=== PATIENT | male | born 1995 | race Caucasian/White ===

== ENCOUNTER 2016-12-17 23:54 | Emergency (ER) | payer MEDICAID ==
[~2016-12-17] VITALS: Ht 172.7 cm; Wt 129.7 kg
[~2016-12-17 23:54] MED LIST: CLIN1CAP4 PO; NOR5T
[2016-12-18] MEDS ORDERED: KETOROLAC TROMETH 60MG/2ML VIAL IM ONE (01:00)
[2016-12-18 02:57] VITALS: BP 139/84
== END 2016-12-18 03:15 | disposition short-term general hospital (02) ==
LOC: EDBD 23:54 → ER 12-18
DX: S92.912A Unspecified fracture of left toe(s), initial encounter for closed fracture (principal); S19.9XXA Unspecified injury of neck, initial encounter; M25.561 Pain in right knee; M25.522 Pain in left elbow; F17.200 Nicotine dependence, unspecified, uncomplicated; F12.10 Cannabis abuse, uncomplicated; R51 Headache; Z88.1 Allergy status to other antibiotic agents; V49.9XXA Car occupant (driver) (passenger) injured in unspecified traffic accident, initial encounter; Y93.89 Activity, other specified; Y99.8 Other external cause status; Y92.89 Other specified places as the place of occurrence of the external cause
CPT/HCPCS: 70450; 70486; 71010; 71250; 72125; 73080; 73560; 73630; 74176; 96372; 99285; J1885

== ENCOUNTER 2025-04-28 21:12 | Inpatient (IN) | payer MEDICAID ==
[~2025-04-28] VITALS: Ht 172.7 cm; Wt 142.4 kg
[~2025-04-28 21:12] MED LIST changes: -CLIN1CAP4 PO; +CLIN1CAP70 PO; +HYDR-4833; -NOR5T
--- NOTE | 2025-04-28 22:28 | ED.PDOC ---
General HPI Comments 30 year old male brought in by family complaining of right lower quadrant abdominal pain. Patient states for the past 3 hours, he has been having constant right lower quadrant abdominal pain, 9/10 intensity, radiating to his right flank and low back, associated with nausea and vomiting and gross hematuria. Denies any dysuria or fever. Chief Complaint: Abdominal Pain Time Seen by MD: 22:28 Primary Care Provider: VIANCA Hamlin notes: Nurses Notes Allergies: Coded Allergies: Amoxicillin (Verified Allergy, Unknown, 04/28/25) Home Meds Reported Medications Hydrocodone-Acetaminophen ([place] 5/325MG) 1 Tab Tb 06/21/10 Clindamycin Hcl (Clindamycin Hcl) 300 Mg Cap, 600 MG PO TID 06/20/10 Information Source: Patient Mode of Arrival: Ambulatory Severity: Moderate Inability to void: Mild Timing: Hours (3) Duration: Since onset Has not urinated for: Minutes Onset: Spontaneous Symptoms: Hematuria History of: UTI Location: (R) Flank, Other (Right lower quadrant) associated signs and symptoms: Abdominal Pain, Nausea, Vomiting, Flank Pain, He maturia Past Medical History PAST MEDICAL HISTORY: UTI'S Surgical History: Denies all surgeries Family History Family History: Reviewed,noncontributory to illness Social History Smoker: Less Than 1 Pack/Day Alcohol: Denies ETOH Use Drugs: Marijuana Lives In: Home Constitutional: denies: chills, diaphoresis, fatigue, fever, malaise, sweats, weakness, others EENTM: denies: blurred vision, double vision, ear bleeding, ear discharge, ear drainage, ear pain, ear ringing, eye pain, eye redness, hearing loss, mouth pain, mouth swelling, nasal discharge, nose bleeding, nose congestion, nose pain, photophobia, tearing, throat pain, throat swelling, voice changes, others Respiratory: denies: cough, hemoptysis, orthopnea, SOB at rest, shortness of breath, SOB with excertion, stridor, wheezing, others Cardiovascular: denies: chest pain, dizzy spells, diaphoresis, Dyspnea on exertion, edema, irregular heart beat, left arm pain, lightheadedness, palpitations, PND, syncope, others Gastrointestinal: reports: abdominal pain (RLQ), nausea, vomiting; denies: abdomen distended, blood streaked bowels, constipated, diarrhea, dysphagia, difficulty swallowing, hematemesis, melena, poor appetite, poor fluid intake, rectal bleeding, rectal pain, others Genitourinary: reports: flank pain (right), hematuria; denies: burning, dysuria, frequency, incontinence, penile discharge, penile sore, pain, testicle pain, testicle swelling, urgency, others Neurological: denies: dizziness, fainting, headache, left sided numbness, left sided weakness, numbness, paresthesia, pre-existing deficit, right sided numbne ss, right sided weakness, seizure, speech problems, tingling, tremors, weakness, others Musculoskeletal: denies: back pain, gout, joint pain, joint swelling, muscle pain, muscle stiffness, neck pain, others Integumetry: denies: bruises, change in color, change in hair/nails, dryness, laceration, lesions, lumps, rash, wounds, others Allergic/Immunocompromised: denies: Difficulty Healing, Frequent Infections, Hives, Itching, others Hematologic/Lymphatic: denies: anemia, blood clots, easy bleeding, easy bruising, swollen glands, others Endocrine: denies: excessive hunger, excessive sweating, excessive thirst, excessive urination, flushing, intolerance to cold, intolerance to heat, unexplained weight gain, unexplained weight loss, others Psychiatric: denies: anxiety, bipolar disorder, depression, hopeless, panic disorder, schizophrenia, sleepless, suicidal, others Physical Exam General Appearance: Moderate Distress, Obese HEENT: Other (Pupils and face symmetric. Moist mucous membranes.) Neck: Full Range of Motion, Normal Inspection Respiratory: Lungs Clear, No Accessory Muscle Use, No Respiratory Distress, Normal Breath Sounds Cardiovascular: No Edema, No JVD, Regular Rate/Rhythm Breast Exam: Deferred Gastrointestinal: RLQ, Soft, Tenderness (Right lower flank and right lower quadrant tenderness to palpation) Genitalia: Deferred Pelvic: Deferred Rectal: Deferred Extremities: Normal inspection, Normal range of motion, Non-tender, No pedal edema Neurologic: Alert (Oriented x4), Normal Affect, Normal Mood, Other (Ambulatory) Cerebellar Function: NOT DONE Reflexes: NOT DONE Skin: Dry, Normal Color, Warm Lymphatic: NOT DONE Was a procedure done? Was a procedure done?: No Differential Diagnosis Kidney stone (Female): Appendicitis, Bowel obstruction, N/A Kidney stone (Male): Pyelonephritis, Renal failure, Strain, Urinary obs truction, Urolithiasis, Urinary tract infection Urinary Problem (Male): Urethritis, Urolithiasis, UTI X-Ray, Labs, Meds, VS Vital Signs Date Time Temp Pulse Resp B/P (MAP) Pulse Ox O2 Delivery O2 Flow Rate FiO2 04/29/25 00:55 97.7 62 16 151/82 (105) 93 97.7 04/29/25 00:04 73 15 151/82 04/28/25 23:36 60 16 153/86 04/28/25 23:22 97.0 60 16 153/86 (108) 93 97.0 04/28/25 23:22 60 16 93 Room Air* 0 21 04/28/25 22:00 97.5 58 18 162/69 (100) 95 97.5 Lab Test 04/28/25 22:21 04/28/25 22:00 Range/Units White Blood Count 13.2 H 4.4-10.8 10^3/uL Red Blood Count 5.16 4.5-5.90 10^6/uL Hemoglobin 15.6 13.5-17.5 g/dL Hematocrit 46.0 41.0-53.0 % Mean Corpuscular Volume 89.3 80.0-100.0 fL Mean Corpuscular Hemoglobin 30.3 28.0-32.0 pg Mean Corpuscular Hemoglobin Concent 33.9 32.0-36.0 g/dL Red Cell Distribution Width 12.4 11.8-14.3 % Platelet Count 312 140-450 10^3/uL Mean Platelet Volume 8.0 6.9-10.8 fL Neutrophils (%) (Auto) 78.0 37.0-80.0 % Lymphocytes (%) (Auto) 15.2 10.0-50.0 % Monocytes (%) (Auto) 6.4 0.0-12.0 % Eosinophils (%) (Auto) 0.1 0.0-7.0 % Basophils (%) (Auto) 0.3 0.0-2.0 % Neutrophils # (Auto) 10.3 H 1.6-8.6 10 ^3/uL Lymphocytes # (Auto) 2.0 0.4-5.4 10 ^3/uL Monocytes # (Auto) 0.8 0-1.3 10 ^3/uL Eosinophils # (Auto) 0 0-0.8 10 ^3/uL Basophils # (Auto) 0 0-0.2 10 ^3/uL Nucleated Red Blood Cells 0.0 % Sodium Level 142 136-145 mmol/L Potassium Level 4.1 3.5-5.1 mmol/L Chloride Level 104 98-107 mmol/L Carbon Dioxide Level 30 20-31 mmol/L Anion Gap 8 5-15 Blood Urea Nitrogen 20 9-23 mg/dL Creatinine 1.15 0.700-1.30 mg/dL Glomerular Filtration Rate Calc 87 >90 mL/min BUN/Creatinine Ratio 17.4 10.0-20.0 Serum Glucose 186 H 74-106 mg/dL Calcium Level 9.9 8.7-10.4 mg/dL Total Bilirubin 0.9 0.2-1.0 mg/dL Aspartate Amino Transferase (AST) 24 13-40 U/L Alanine Aminotransferase (ALT) 25 7-40 U/L Alkaline Phosphatase 60 46-116 U/L Total Protein 7.9 5.7-8.2 g/dL Albumin 5.0 H 3.2-4.8 g/dL Urine Color Brown H Yellow Urine Clarity Ex.turbid Clear Urine pH 5.5 5.0-9.0 Urine Specific [place] 1.038 H 1.001-1.035 Urine Protein 1+ H Negative Urine Ketones 1+ H Negative Urine Blood 3+ H Negative /uL Urine Nitrite Negative Negative Urine Bilirubin Negative Negative Urine Urobilinogen Normal Negative mg/dL Urine Leukocyte Esterase Negative Negative /uL Urine RBC 6490 0 - 3 /hpf Urine Microscopic WBC 110 H 0-3 /HPF Urine Squamous Epithelial Cells None seen <5 /hpf Urine Bacteria None seen None Seen /hpf Urine Mucus Few None Seen Urine Glucose Normal Normal mg/dL Current Medications Medications (Trade) Dose Ordered Sig/Sheila Route Start Time Stop Time Status Last Admin Sodium Chloride 1,000 ml @ 1,000 mls/hr Q1H ONCE IV 04/28/25 22:15 04/28/25 23:14 DC 04/28/25 23:37 Ondansetron HCl (Zofran) 4 mg ONCE ONCE IV 04/28/25 22:15 04/28/25 22:16 DC 04/28/25 23:34 Morphine Sulfate 6 mg ONCE ONCE IV 04/28/25 22:15 04/28/25 22:16 DC 04/28/25 23:36 Magnesium Sulfate/ Dextrose 100 ml @ 100 mls/hr Q1H IV 04/28/25 22:15 04/29/25 00:14 DC 04/29/25 00:02 Ketorolac Tromethamine (Toradol Injection) 30 mg ONCE ONCE IV 04/29/25 01:00 04/29/25 01:04 DC 04/29/25 01:07 PROCEDURE(s): ABPL - CT AB PEL WO CON-NO ORAL OR IV REASON: RLQ pain rad to R flank, hematuria ORDER NUMBER(s): [id number], ACCESSION NUMBER(s): [id number] CLINICAL HISTORY: RLQ pain rad to R flank, hematuria TECHNIQUE: CT of the abdomen and pelvis was performed without intravenous contrast. This exam was performed according to our departmental dose optimization program. Up-to-date CT equipment and radiation dose reduction techniques are utilized as appropriate. CTDI: 27.87+ 0.14 DLP: 1657.94 WID: COMPARISON: None FINDINGS: Lower Thorax: Cluster of nodular opacities in the right middle lobe on series 3, image 11. Liver and Biliary system: Mild hepatomegaly measuring 21 cm craniocaudal. Otherwise unremarkable. Spleen: Unremarkable. Adrenal Glands and Kidneys: Normal adrenal glands. There is an obstructing 3 mm calculus in the proximal right ureter causing mild right hydronephrosis and mild right periureteral and perinephric soft tissue stranding. Additional tiny nonobstructing left renal calculi. Pancreas and Retroperitoneum: Unremarkable. Aorta and Major Vessels: Unremarkable. Bowel, Mesentery and Peritoneal space: Normal caliber small and large bowel. Normal appendix. No free air or fluid collection. Pelvis: Dystrophic calcification in the central prostate gland. Decompressed urinary bladder. No pelvic lymphadenopathy. Abdominal wall and Osseous Structures: Small fat containing bilateral inguinal and umbilical hernias. Minor lower thoracic and lumbar spondylosis. No destructive osseous lesion. IMPRESSION: Obstructing 3 mm calculus in the proximal right ureter causing mild right hydronephrosis. Cluster of nodular opacities in the right middle lobe which could reflect atypical infection. Additional tiny nonobstructing left renal calculi. Mild hepatomegaly. X-Ray, Labs, Meds, VS Comment 30-year-old male with no significant past medical history complaining of right lower quadrant pain radiating to the right flank and right lower back, associated with hematuria Vitals remarkable for heart rate 58, BP 162/59 Exam remarkable for right lower quadrant and right lower flank tenderness to palpation Rhythm strip independently interpreted by me: Sinus rhythm, rate 60, no ectopy. CT abdomen and pelvis IMPRESSION: Obstructing 3 mm calculus in the proximal right ureter causing mild right hydronephrosis. Cluster of nodular opacities in the right middle lobe which could reflect atypical infection. Additional tiny nonobstructing left renal calculi. Mild hepatomegaly. CBC remarkable for WBC 13.2, basic metabolic panel remarkable for glucose 186, UA positive for blood, protein, ketones, WBCs, RBCs Patient treated with the following in the ED: 1 L 0.9 normal saline IV bolus, morphine 6 mg IV, Zofran 4 mg IV, magnesium rider 2 g IV, Toradol 30 mg IV with only partial improvement of his pain Plan is to admit the patient for pain control and Urology evaluation. Time of 1ST Reevaluation: 22:25 Reevaluation 1ST: Unchanged Patient Education/Counseling: Diagnosis, Treatment Family Education/Counseling: Diagnosis, Treatment SEPSIS Sepsis Screen Physician Orders Ct Ab Pel Wo Con-No Oral Or Iv (04/28/25 22:12) Vital Signs Date Time Temp Pulse Resp B/P (MAP) Pulse Ox O2 Delivery O2 Flow Rate FiO2 04/29/25 00:55 97.7 62 16 151/82 (105) 93 97.7 04/29/25 00:04 73 15 151/82 04/28/25 23:36 60 16 153/86 04/28/25 23:22 97.0 60 16 153/86 (108) 93 97.0 04/28/25 23:22 60 16 93 Room Air* 0 21 04/28/25 22:00 97.5 58 18 162/69 (100) 95 97.5 Laboratory Tests Test 04/28/25 22:21 White Blood Count 13.2 10^3/uL (4.4-10.8) H Medications Medications Dose Ordered Sig/Sheila Route Start Time Stop Time Status Last Admin Dose Admin Ketorolac Tromethamine 30 mg ONCE ONCE IV 04/29/25 01:00 04/29/25 01:04 DC 04/29/25 01:07 Magnesium Sulfate/ Dextrose 100 ml @ 100 mls/hr Q1H IV 04/28/25 22:15 04/29/25 00:14 DC 04/29/25 00:02 Morphine Sulfate 6 mg ONCE ONCE IV 04/28/25 22:15 04/28/25 22:16 DC 04/28/25 23:36 Ondansetron HCl 4 mg ONCE ONCE IV 04/28/25 22:15 04/28/25 22:16 DC 04/28/25 23:34 Sodium Chloride 1,000 ml @ 1,000 mls/hr Q1H ONCE IV 04/28/25 22:15 04/28/25 23:14 DC 04/28/25 23:37 Departure 1 Departure Time of Disposition: 01:00 Impression: Primary Impression: Hydronephrosis concurrent with and due to calculi of kidney and ureter Disposition: ADMITTED INPATIENT Admit to: Med Surg Condition: Guarded Critical Care Note Critical Care Time?: No Stability Stability form required: No Heart Score Heart Score: Heart Score Response (Comments) Value History N/A 0 EKG N/A 0 Age N/A 0 Risk Factors N/A 0 Troponin N/A 0 Total 0 I personally scribed for SHELBY OLIVAS MD ([facility]) on 04/28/25 at 22:28. Electronically submitted by Bhaart Stone ([facility]). I personally scribed for SHELBY OLIVAS MD ([email or web address]) on 04/29/25 at 00:40. Electronically submitted by Bharat Stone ([facility]). SHELBY OLIVAS MD Apr 28, 2025 22:28
[2025-04-28 22:37] LABS: Hematocrit 46.0 % (41.0-53.0); Hemoglobin 15.6 g/dL (13.5-17.5); Mean Corpuscular Hemoglobin 30.3 pg (28.0-32.0); Mean Corpuscular Volume 89.3 fL (80.0-100.0); Nucleated Red Blood Cells % 0.0 %
[2025-04-28 22:55] LABS: Alanine Aminotransferase 25 U/L (7-40); Alkaline Phosphatase 60 U/L (46-116); Anion Gap 8 (5-15); BUN/Creatinine Ratio 17.4 (10.0-20.0); Blood Urea Nitrogen 20 mg/dL (9-23); Calcium 9.9 mg/dL (8.7-10.4); Carbon Dioxide 30 mmol/L (20-31); Chloride 104 mmol/L (98-107); Potassium 4.1 mmol/L (3.5-5.1); Sodium 142 mmol/L (136-145); Total Protein 7.9 g/dL (5.7-8.2)
[2025-04-28 22:56] LABS: Bilirubin, Total 0.9 mg/dL (0.2-1.0)
[2025-04-28 23:03] LABS: Albumin 5.0 g/dL (3.2-4.8); Glucose 186 mg/dL (74-106)
[2025-04-28 23:06] LABS: Urine Protein, UAD 1+ (Negative)
[2025-04-28 23:22] VITALS: PULSE 60; RESP 16; O2SAT 93
[2025-04-28] MEDS: ONDANSETRON HCL 4 MG/2 ML VIAL IV ONE (23:34)
[2025-04-28] MEDS: MORPHINE SULFATE 4 MG/ML SYR/VIAL IV ONE (23:36)
[2025-04-28] MEDS: MAGNESIUM SULFATE 1GM/100ML 100 ML IV SCH (23:36)
[2025-04-28] MEDS: SODIUM CHLORIDE 0.9% 1,000 ML IV ONE (23:37)
[2025-04-29] VITALS (9 sets, daily range): BP systolic 108–129; BP diastolic 66–82; PULSE 72–96; RESP 16–20; TEMP 97.5–98.7; O2SAT 92–100
--- NOTE | 2025-04-29 00:08 | DVH ---
CLINICAL HISTORY: RLQ pain rad to R flank, hematuria TECHNIQUE: CT of the abdomen and pelvis was performed without intravenous contrast. This exam was per formed according to our departmental dose optimization program. Up-to-date CT equipment and radiation dose reduction techniques are utilized as appropriate. CTDI: 27.87+ 0.14 DLP: 1657.94 WID: COMPARISON: None FINDINGS: Lower Thorax: Cluster of nodular opacities in the right middle lobe on series 3, image 11. Liver and Biliary system: Mild hepatomegaly measuring 21 cm craniocaudal. Otherwise unremarkable. Spleen: Unremarkable. Adrenal Glands and Kidneys: Normal adrenal glands. There is an obstructing 3 mm calculus in the proxi mal right ureter causing mild right hydronephrosis and mild right periureteral and perinephric soft t issue stranding. Additional tiny nonobstructing left renal calculi. Pancreas and Retroperitoneum: Unremarkable. Aorta and Major Vessels: Unremarkable. Bowel, Mesentery and Peritoneal space: Normal caliber small and large bowel. Normal appendix. No free air or fluid collection. Pelvis: Dystrophic calcification in the central prostate gland. Decompressed urinary bladder. No pel dandre lymphadenopathy. Abdominal wall and Osseous Structures: Small fat containing bilateral inguinal and umbilical hernias. Minor lower thoracic and lumbar spondylosis. No destructive osseous lesion. IMPRESSION: Obstructing 3 mm calculus in the proximal right ureter causing mild right hydronephrosis. Cluster of nodular opacities in the right middle lobe which could reflect atypical infection. Additional tiny nonobstructing left renal calculi. Mild hepatomegaly.
[2025-04-29] MEDS: KETOROLAC TROMETH 30 MG/ML 1ML VIAL IV ONE (01:07)
[2025-04-29] MEDS ORDERED: cefTRIAXone 1GM/50ML D5W 50 ML IV ONE (01:45)
[2025-04-29] MEDS ORDERED: ACETAMINOPHEN 325 MG TAB PO PRN (01:45)
[2025-04-29] MEDS ORDERED: SODIUM CHLORIDE 0.9% 1,000 ML IV SCH (01:45)
[2025-04-29] MEDS ORDERED: ONDANSETRON HCL 4 MG/2 ML VIAL IV PRN (01:45)
[2025-04-29] MEDS ORDERED: HYDROcodone-ACET 5/325MG TAB PO PRN (01:45)
[2025-04-29] MEDS: TAMSULOSIN HYDROCHLORIDE 0.4 MG CAP PO ONE (01:56)
[2025-04-29] MEDS: SODIUM CHLORIDE 0.9% 1,000 ML IV SCH (01:57)
[2025-04-29] MEDS: cefTRIAXone 1GM/50ML D5W 50 ML IV ONE ×2 (01:57→10:38)
[2025-04-29] MEDS: MANNITOL FTV 25% 12.5 GM/50 ML 100 ML IV ONE (01:58)
--- NOTE | 2025-04-29 02:03 | DVHHP2 ---
History of Present Illness History of Present Illness Patient is 30-year-old male with past medical history of recurrent UTI came with a complaint of abdominal pain. As per patient he started having severe right lower abdominal pain, sudden onset, 9/10 sharp,, stent, no aggravating or relieving factor, radiating to the right flank started around 6 3rd p.m. last night. Patient also reported having hematuria since morning. Patient's pain was associated with nausea and vomiting of total 5 times, no blood. Patient denied any dysuria, fever, acute joint pain or swelling, urethral discharge, chest pain shortness of breaths. Initial lab workup revealed leukocytosis with WBC 13.2, RBF 186, urinalysis reviewed RBC 6490, WBC 116. UDS positive for cannabinoids. CT abdomen pelvis revealed- Obstructing 3 mm calculus in the proximal right ureter causing mild right hydronephrosis. Cluster of nodular opacities in the right middle lobe which could reflect atypical infection. Additional tiny nonobstructing left renal calculi. Mild hepatomegaly. Past Medical History none Past Surgical History none Past Social History Denies smoking/smokes marijuana, occasional alcoholic, lives with the family Review of Systems Review of Systems Allergy- amoxicillin-rash and hives Patient was seen today at the bedside. Cardiovascular- deny acute chest pain or shortness of breath or cough or palpitation Respiratory denies cough or short of breath or wheezing Gastrointestinal- denies any rectal bleeding, Musculoskeletal-denies acute joint swelling or tenderness or redness Neurological- denies acute dysarthria, dysphagia, change in vision Psychiatry- denies depression or SI or HI Skin- denies acute rash or purpura Allergies: Coded Allergies: Amoxicillin (Verified Allergy, Unknown, 04/28/25) Medications Current Medications Medications Dose Ordered Sig/Sheila Route Start Time Stop Time Status Last Admin Dose Admin Acetaminophen/ Hydrocodone Bitart 1 tab Q4HP PRN PO 04/29/25 01:45 Ondansetron HCl 4 mg Q4HP PRN IV 04/29/25 01:45 Acetaminophen 650 mg Q6HP PRN PO 04/29/25 01:45 Tamsulosin HCl 0.4 mg QPM PO 04/29/25 18:00 Ceftriaxone Sodium 50 ml @ 100 mls/hr DAILY@09 IV 04/30/25 09:00 Sodium Chloride 1,000 ml @ 150 mls/hr Q6H40M IV 04/29/25 01:45 Exam Vital Signs Vital Signs Date Time Temp Pulse Resp B/P (MAP) Pulse Ox O2 Delivery O2 Flow Rate FiO2 04/29/25 00:55 97.7 62 16 151/82 (105) 93 97.7 04/28/25 23:22 Room Air* 0 21 Exam General examination- obese, awake, alert, oriented HEENT- [place], no acute nasal discharge Cardiovascular- S1-S2 audible, rate and rhythm regular, no murmur Respiratory- CTAB, no wheeze or rhonchi Gastrointestinal-right lower abdominal mild tenderness+, bowel sound+. Nondistended Musculoskeletal-no acute joint swelling or tenderness or redness Renal system- right renal angle tenderness+ mild Lower extremity- no leg edema Neurological- cranial nerves intact, no acute dysarthria or dysphagia Psychiatry- denies depression or SI or HI Skin- no acute rash or purpura Labs/Xrays Labs Test 04/28/25 22:21 04/28/25 22:00 Range/Units White Blood Count 13.2 H 4.4-10.8 10^3/uL Red Blood Count 5.16 4.5-5.90 10^6/uL Hemoglobin 15.6 13.5-17.5 g/dL Hematocrit 46.0 41.0-53.0 % Mean Corpuscular Volume 89.3 80.0-100.0 fL Mean Corpuscular Hemoglobin 30.3 28.0-32.0 pg Mean Corpuscular Hemoglobin Concent 33.9 32.0-36.0 g/dL Red Cell Distribution Width 12.4 11.8-14.3 % Platelet Count 312 140-450 10^3/uL Mean Platelet Volume 8.0 6.9-10.8 fL Neutrophils (%) (Auto) 78.0 37.0-80.0 % Lymphocytes (%) (Auto) 15.2 10.0-50.0 % Monocytes (%) (Auto) 6.4 0.0-12.0 % Eosinophils (%) (Auto) 0.1 0.0-7.0 % Basophils (%) (Auto) 0.3 0.0-2.0 % Neutrophils # (Auto) 10.3 H 1.6-8.6 10 ^3/uL Lymphocytes # (Auto) 2.0 0.4-5.4 10 ^3/uL Monocytes # (Auto) 0.8 0-1.3 10 ^3/uL Eosinophils # (Auto) 0 0-0.8 10 ^3/uL Basophils # (Auto) 0 0-0.2 10 ^3/uL Nucleated Red Blood Cells 0.0 % Sodium Level 142 136-145 mmol/L Potassium Level 4.1 3.5-5.1 mmol/L Chloride Level 104 98-107 mmol/L Carbon Dioxide Level 30 20-31 mmol/L Anion Gap 8 5-15 Blood Urea Nitrogen 20 9-23 mg/dL Creatinine 1.15 0.700-1.30 mg/dL Glomerular Filtration Rate Calc 87 >90 mL/min BUN/Creatinine Ratio 17.4 10.0-20.0 Serum Glucose 186 H 74-106 mg/dL Calcium Level 9.9 8.7-10.4 mg/dL Total Bilirubin 0.9 0.2-1.0 mg/dL Aspartate Amino Transferase (AST) 24 13-40 U/L Alanine Aminotransferase (ALT) 25 7-40 U/L Alkaline Phosphatase 60 46-116 U/L Total Protein 7.9 5.7-8.2 g/dL Albumin 5.0 H 3.2-4.8 g/dL Urine Color Brown H Yellow Urine Clarity Ex.turbid Clear Urine pH 5.5 5.0-9.0 Urine Specific [place] 1.038 H 1.001-1.035 Urine Protein 1+ H Negative Urine Ketones 1+ H Negative Urine Blood 3+ H Negative /uL Urine Nitrite Negative Negative Urine Bilirubin Negative Negative Urine Urobilinogen Normal Negative mg/dL Urine Leukocyte Esterase Negative Negative /uL Urine RBC 6490 0 - 3 /hpf Urine Microscopic WBC 110 H 0-3 /HPF Urine Squamous Epithelial Cells None seen <5 /hpf Urine Bacteria None seen None Seen /hpf Urine Mucus Few None Seen Urine Glucose Normal Normal mg/dL Assessment/Plan Assessment/Plan Assessment and plan #Obstructing right renal calculi with hydronephrosis -CT scan of the abdomen and pelvis revealed-obstructing 3 mm calculus in the right proximal ureter with mild hydronephrosis -continue Flomax 0.4 mg p.o. daily -ordered mannitol 100 mL iv stat over 5 minutes -ordered urology consult -continue IV normal saline@ 150 mL/hour - continue pain medication as prescribed #Bilateral nephrolithiasis --continue Flomax 0.4 mg p.o. daily -ordered mannitol 100 mL iv stat over 5 minutes -ordered urology consult # Hematuria likely due to nephrolithiasis --continue IV normal saline@ 150 mL/hour -pending urine culture -continue ceftriaxone 1 g IV daily #Intractable abdominal pain likely due to nephrolithiasis -continue IV Zofran 4 mg q.6h PRN # obesity -patient was counseled about the effect of obesity on health, healthy diet, physical activity, weight reduction # right middle lobe nodule -follow up outpatient with the primary care physician for further evaluation and care # mild hepatomegaly -follow up outpatient with the primary care physician for further evaluation and care Diet-regular diet PCP-patient could not mentioned the name of his PCP Goals of care, Code status full code ; discussed with >15 minutes PUD prophylaxis: Pantoprazole DVT prophylaxis: Patient ambulating Plan discussed with Dr. Dobbs , nursing staff, Total time spent on patient evaluation, chart review, assessment and plan, discussion discussion >35 minutes Plan discussed with: Patient, Other (father, RN) My Orders Orders - ARNOLDO ARITA RESIDENT Procedure Category Date Status Time Admit ADMIT 04/29/25 Transmitted 01:33 Code Status CODE 04/29/25 Transmitted 01:33 Hydrocodone-Acet PHA 04/29/25 In Process 5/325mg Tab ([place] 01:45 Ondansetron Hcl PHA 04/29/25 In Process (Zofran) 01:45 Acetaminophen Tablet PHA 04/29/25 In Process (Tylenol Tablet) 01:45 Notify Md Of Changes BRYAN 04/29/25 In Process From Base 01:33 Magnesium LAB 04/29/25 Logged 01:35 Thyroid Stimulating LAB 04/29/25 Logged Hormone 01:35 Urine Bacterial LEYLA 04/29/25 Logged Culture 01:35 Drug Screen LAB 04/29/25 Logged 01:35 Blood Alcohol LAB 04/29/25 Logged 01:35 Tamsulosin PHA 04/29/25 In Process Hydrochloride (Flomax) 18:00 Mannitol Ftv 25% 12.5 PHA 04/29/25 In Process Gm/50 Ml 01:45 * Urology Consult CONS 04/29/25 Transmitted 01:35 Sodium Chloride 0.9% PHA 04/29/25 In Process 01:45 Ceftriaxone 1gm/50ml PHA 04/30/25 In Process D5w (Rocephin) 09:00 Date of Service: Apr 29, 2025 Billing Provider: DARRIN DOBBS MD Common Visit Codes: 73295-FOCEBHR INP/OBS CARE (HIGH) Secondary Visit Codes: 66365-[id number] CARE PLAN 30 MINUTES ARNOLDO ARITA RESIDENT Apr 29, 2025 02:03
[2025-04-29 02:25] LABS: Magnesium 2.2 mg/dL (1.6-2.6)
[2025-04-29 04:25] LABS: Amphetamine Screen, Urine Neg (NEGATIVE); Barbiturate Scree,Urine Neg (NEGATIVE); Benzodiazephine Screen, Urine Neg (NEGATIVE); Cannabinoid Screen, Urine Pos (NEGATIVE)
[2025-04-29 04:28] LABS: Cocaine Screen, Urine Neg (NEGATIVE); Opiate Scree,Urine Neg (NEGATIVE); Phencyclidine Screen, Urine Neg (NEGATIVE)
[2025-04-29 11:30] LABS: Hematocrit 40.8 % (41.0-53.0); Hemoglobin 14.1 g/dL (13.5-17.5); Mean Corpuscular Hemoglobin 30.9 pg (28.0-32.0); Mean Corpuscular Volume 89.3 fL (80.0-100.0); Nucleated Red Blood Cells % 0.1 %
--- NOTE | 2025-04-29 14:04 | DVH ---
EXAM: XR Abdomen, 1 View CLINICAL INDICATION: Nephrolithiasis TECHNIQUE: Frontal supine view of the abdomen/pelvis. COMPARISON: No relevant prior studies available. FINDINGS: GASTROINTESTINAL TRACT: Fecal retention in the colon consistent with constipation. No dilation. BONES/JOINTS: Unremarkable. No acute fracture. OTHER FINDINGS: Comparison None. Current study is underpenetrated. Therefore, detection of subtle calculi is suboptimal. IMPRESSION: Fecal retention in the colon consistent with constipation. HS:Y
--- NOTE | 2025-04-29 14:49 | DVHPNRES ---
Progress Note Date Seen: Apr 29, 2025 Resident Creating Document: RENU RANDOLPH RESIDENT Medical Necessity Reason Pt with a Central, PICC or Fol: No Subjective Review of Systems Daniel RILEYQuinn Is a 30 years old male with no significant PMH presented to the ED with the chief complaints of abdominal pain. Patient reported that he started having right abdominal lower quadrant pain, sudden onset, 9/10 intensity, no aggravating or relieving factors but radiating to right flank associated with nausea and vomiting and hematuria since today moaning. on my assessment patient denies fever, chills, dysuria, joint pain, urethral discharge, chest pain, shortness of breath and other associated symptoms. PMH: Not significant PSH: Not significant Family history: Noncontributory Social history: Lives at home. Smokes marijuana, occasional alcoholic but denies other drug abuse Allergies: amoxicillin Patient seen and examined at the bedside. Overnight events reviewed, no new complaints reported at this time. Patient reported improvement in his pain since admission. Objective vital signs Vital Sign Date Time Temp Pulse Resp B/P (MAP) Pulse Ox O2 Delivery O2 Flow Rate FiO2 04/29/25 12:52 98.7 79 16 122/69 (86) 95 98.7 04/29/25 08:00 Room Air* 0 21 Total Intake and Output 04/28/25 04/28/25 04/29/25 15:00 23:00 07:00 Intake Total 100 ml Output Total 0 ml Balance 100 ml medications Current Medications Medications Dose Ordered Sig/Sheila Route Start Time Stop Time Status Last Admin Dose Admin Acetaminophen/ Hydrocodone Bitart 1 tab Q4HP PRN PO 04/29/25 01:45 Ondansetron HCl 4 mg Q4HP PRN IV 04/29/25 01:45 Acetaminophen 650 mg Q6HP PRN PO 04/29/25 01:45 Tamsulosin HCl 0.4 mg QPM PO 04/29/25 18:00 Sodium Chloride 1,000 ml @ 150 mls/hr Q6H40M IV 04/29/25 01:45 04/29/25 08:35 150 MLS/HR Ceftriaxone Sodium 50 ml @ 100 mls/hr DAILY@09 IV 04/30/25 09:00 Cyanocobalamin 500 mcg DAILY PO 04/30/25 10:00 Examination Pt is lying on bed General Appearance: Alert, Oriented X3, Cooperative, Not in acute distress HEENT: Atraumatic, Mucous membranes moist/pink Respiratory: Clear to auscultation, Normal air movement, No added sounds Cardiovascular: Regular rate, Normal S1, Normal S2, No murmurs Abdominal: Active bowel sounds, Soft, no distention, no tenderness Extremities: No edema, Normal pulses, No tenderness/swelling Skin: No Significant rash, except past surgical scars Neuro: Normal speech, sensorimotor deficits none Psych/Mental Status: Mental status NL, Mood NL Nurse was there as sales floor associate during examination laboratory and microbiology Laboratory Tests 04/29/25 10:50 04/28/25 22:21 Test 04/28/25 22:21 Range/Units Serum Glucose 186 H 74-106 mg/dL Labs and/or images reviewed: Labs reviewed by me, Image(s) reviewed by me Problem List/Assessment/Plan Problem List/Assessment/Plan # Obstructing right renal calculi with hydronephrosis -CT scan of the abdomen and pelvis revealed-obstructing 3 mm calculus in the right proximal ureter with mild hydronephrosis -continue Flomax 0.4 mg p.o. daily -ordered mannitol 100 mL iv stat over 5 minutes- discontinued -ordered urology consult -continue IV normal saline@ 150 mL/hour - continue pain medication as prescribed - KUB ordered # Bilateral nephrolithiasis --continue Flomax 0.4 mg p.o. daily -ordered mannitol 100 mL iv stat over 5 minutes -ordered urology consult # Hematuria likely due to nephrolithiasis --continue IV normal saline@ 150 mL/hour -pending urine culture -continue ceftriaxone 1 g IV daily # Acute complicated UTI/ cystitis - evident on urinalysis - ordered urine bacterial culture - currently giving Rocephin #Intractable abdominal pain likely due to nephrolithiasis -continue IV Zofran 4 mg q.6h PRN # obesity -patient was counseled about the effect of obesity on health, healthy diet, physical activity, weight reduction # right middle lobe nodule -follow up outpatient with the primary care physician for further evaluation and care # mild hepatomegaly -follow up outpatient with the primary care physician for further evaluation and care Diet-regular diet PUD prophylaxis: Pantoprazole DVT prophylaxis: Patient ambulating Goals of care discussed with the patient for more than 27 minutes: Full code status Case discussed with the Dr. Cast, patient and nurse Plan discussed with: Patient My Orders My Orders Orders - RENU RANDOLPH Procedure Category Date Status Time Ceftriaxone 1gm/50ml PHA 04/30/25 In Process D5w (Rocephin) 09:00 * Urology Consult CONS 04/29/25 Transmitted 10:12 Kub Abdomen Single XY 04/29/25 Resulted View 12:57 RENU RANDOLPH RESIDENT Apr 29, 2025 14:49
[2025-04-29] MEDS: CYANOCOBALAMIN (B-12) 1000 MCG/1 ML VIAL IM ONE (15:08)
[2025-04-29] MEDS: TAMSULOSIN HYDROCHLORIDE 0.4 MG CAP PO SCH (22:09)
[2025-04-30 01:00] VITALS: BP 103/71; PULSE 78; RESP 20; TEMP 97.7; O2SAT 92
[2025-04-30 05:00] VITALS: BP 137/89; PULSE 90; RESP 20; TEMP 97.6; O2SAT 94
[2025-04-30 07:14] LABS: Hematocrit 40.2 % (41.0-53.0); Hemoglobin 13.7 g/dL (13.5-17.5); Mean Corpuscular Hemoglobin 30.8 pg (28.0-32.0); Mean Corpuscular Volume 90.0 fL (80.0-100.0); Nucleated Red Blood Cells % 0.0 %
[2025-04-30 08:00] VITALS: PULSE 83; RESP 18; O2SAT 96
[2025-04-30] MEDS: cefTRIAXone 1GM/50ML D5W 50 ML IV SCH (08:38)
[2025-04-30] MEDS: CYANOCOBALAMIN 500 MCG TAB PO SCH (08:38)
[2025-04-30 09:00] VITALS: BP 125/72; PULSE 83; RESP 18; TEMP 98; O2SAT 96
[2025-04-30] MEDS ORDERED: cefTRIAXone 1GM/50ML D5W 50 ML IV SCH (09:00)
--- NOTE | 2025-04-30 11:00 | DVHINCON2 ---
Date of service: Apr 30, 2025 Referring Physician Jessica Reason for Consultation right ureteral stone,passed History of Present Illness admitted 04/28 with right renal colic now pain free,stone passed into strainer Past Medical History reviewed Past Surgical History reviewed Family History: Patient reports no known family medical history. Allergies: Coded Allergies: Amoxicillin (Verified Allergy, Unknown, 04/28/25) Home Meds No Active Prescriptions or Reported Meds Current Medications Current Medications Medications (Trade) Dose Ordered Sig/Sheila Route PRN Reason Start Time Stop Time Status Last Admin Tamsulosin HCl (Flomax) 0.4 mg QPM PO 04/29/25 18:00 04/29/25 22:09 Ceftriaxone Sodium 50 ml @ 100 mls/hr DAILY@ IV 04/30/25 09:00 04/29/25 10:21 DC Ceftriaxone Sodium 50 ml @ 100 mls/hr DAILY@ IV 04/30/25 09:00 04/30/25 08:38 Cyanocobalamin (Vitamin B-12) 500 mcg DAILY PO 04/30/25 10:00 04/30/25 08:38 Review of Systems reviewed Vital Signs Vital Signs Date Time Temp Pulse Resp B/P (MAP) Pulse Ox O2 Delivery O2 Flow Rate FiO2 04/30/25 09:00 98.0 83 18 125/72 (89) 96 98.0 04/30/25 08:00 Room Air* 0 21 Labs/Diagnostic Data Labs Test 04/30/25 05:35 04/29/25 10:50 04/28/25 22:21 04/28/25 22:00 Range/Units White Blood Count 6.6 # 4.4-10.8 10^3/uL Red Blood Count 4.47 L 4.5-5.90 10^6/uL Hemoglobin 13.7 13.5-17.5 g/dL Hematocrit 40.2 L 41.0-53.0 % Mean Corpuscular Volume 90.0 80.0-100.0 fL Mean Corpuscular Hemoglobin 30.8 28.0-32.0 pg Mean Corpuscular Hemoglobin Concent 34.2 32.0-36.0 g/dL Red Cell Distribution Width 12.6 11.8-14.3 % Platelet Count 248 140-450 10^3/uL Mean Platelet Volume 8.5 6.9-10.8 fL Neutrophils (%) (Auto) 56.8 37.0-80.0 % Lymphocytes (%) (Auto) 32.7 10.0-50.0 % Monocytes (%) (Auto) 9.5 0.0-12.0 % Eosinophils (%) (Auto) 0.8 0.0-7.0 % Basophils (%) (Auto) 0.2 0.0-2.0 % Neutrophils # (Auto) 3.8 1.6-8.6 10 ^3/uL Lymphocytes # (Auto) 2.2 0.4-5.4 10 ^3/uL Monocytes # (Auto) 0.6 0-1.3 10 ^3/uL Eosinophils # (Auto) 0.1 0-0.8 10 ^3/uL Basophils # (Auto) 0 0-0.2 10 ^3/uL Nucleated Red Blood Cells 0.0 % Lactic Acid Level 0.8 0.4-2.0 mmol/L Sodium Level 142 136-145 mmol/L Potassium Level 4.1 3.5-5.1 mmol/L Chloride Level 104 98-107 mmol/L Carbon Dioxide Level 30 20-31 mmol/L Anion Gap 8 5-15 Blood Urea Nitrogen 20 9-23 mg/dL Creatinine 1.15 0.700-1.30 mg/dL Glomerular Filtration Rate Calc 87 >90 mL/min BUN/Creatinine Ratio 17.4 10.0-20.0 Serum Glucose 186 H 74-106 mg/dL Hemoglobin A1c 5.6 <5.7 % A1C Calcium Level 9.9 8.7-10.4 mg/dL Magnesium Level 2.2 1.6-2.6 mg/dL Total Bilirubin 0.9 0.2-1.0 mg/dL Aspartate Amino Transferase (AST) 24 13-40 U/L Alanine Aminotransferase (ALT) 25 7-40 U/L Alkaline Phosphatase 60 46-116 U/L Total Protein 7.9 5.7-8.2 g/dL Albumin 5.0 H 3.2-4.8 g/dL Vitamin B12 Level 399 211-911 pg/mL Vitamin D 25-Hydroxy 36.7 30.0-100 ng/mL Folic Acid 37.73 >5.38 ng/mL Thyroid Stimulating Hormone (TSH) 1.82 0.55-4.78 uIU/mL Plasma/Serum Blood Alcohol 3.3 <10 mg/dL Urine Color Brown H Yellow Urine Clarity Ex.turbid Clear Urine pH 5.5 5.0-9.0 Urine Specific [place] 1.038 H 1.001-1.035 Urine Protein 1+ H Negative Urine Ketones 1+ H Negative Urine Blood 3+ H Negative /uL Urine Nitrite Negative Negative Urine Bilirubin Negative Negative Urine Urobilinogen Normal Negative mg/dL Urine Leukocyte Esterase Negative Negative /uL Urine RBC 6490 0 - 3 /hpf Urine Microscopic WBC 110 H 0-3 /HPF Urine Squamous Epithelial Cells None seen <5 /hpf Urine Bacteria None seen None Seen /hpf Urine Mucus Few None Seen Urine Glucose Normal Normal mg/dL Urine Opiates Screen Neg NEGATIVE Urine Fentanyl Screen Neg NEGATIVE Urine Barbiturates Screen Neg NEGATIVE Urine Phencyclidine Screen Neg NEGATIVE Urine Amphetamines Screen Neg NEGATIVE Urine Benzodiazepines Screen Neg NEGATIVE Urine Cocaine Screen Neg NEGATIVE Urine Cannabinoids Screen Pos NEGATIVE Microbiology Date/Time Source Procedure Growth Status 04/28/25 22:00 Voided Urine Urine Culture - Preliminary Resulted Assessment stone passed Plan/Recommendation discharge Plan discussed with: Patient YUE CRESPO MD Apr 30, 2025 11:00
[2025-04-30 13:00] VITALS: BP 140/85; PULSE 96; RESP 19; TEMP 98.4; O2SAT 96
--- NOTE | 2025-04-30 13:33 | DVHDS2 ---
Discharge Summary Date of Admission Apr 29, 2025 at 01:33 Labs/Diagnostic Data: Laboratory Results Test 04/30/25 05:35 04/29/25 10:50 04/28/25 22:21 04/28/25 22:00 White Blood Count 6.6 10^3/uL (4.4-10.8) Red Blood Count 4.47 10^6/uL (4.5-5.90) Hemoglobin 13.7 g/dL (13.5-17.5) Hematocrit 40.2 % (41.0-53.0) Mean Corpuscular Volume 90.0 fL (80.0-100.0) Mean Corpuscular Hemoglobin 30.8 pg (28.0-32.0) Mean Corpuscular Hemoglobin Concent 34.2 g/dL (32.0-36.0) Red Cell Distribution Width 12.6 % (11.8-14.3) Platelet Count 248 10^3/uL (140-450) Mean Platelet Volume 8.5 fL (6.9-10.8) Neutrophils (%) (Auto) 56.8 % (37.0-80.0) Lymphocytes (%) (Auto) 32.7 % (10.0-50.0) Monocytes (%) (Auto) 9.5 % (0.0-12.0) Eosinophils (%) (Auto) 0.8 % (0.0-7.0) Basophils (%) (Auto) 0.2 % (0.0-2.0) Neutrophils # (Auto) 3.8 10 ^3/uL (1.6-8.6) Lymphocytes # (Auto) 2.2 10 ^3/uL (0.4-5.4) Monocytes # (Auto) 0.6 10 ^3/uL (0-1.3) Eosinophils # (Auto) 0.1 10 ^3/uL (0-0.8) Basophils # (Auto) 0 10 ^3/uL (0-0.2) Nucleated Red Blood Cells 0.0 % Lactic Acid Level 0.8 mmol/L (0.4-2.0) Sodium Level 142 mmol/L (136-145) Potassium Level 4.1 mmol/L (3.5-5.1) Chloride Level 104 mmol/L (98-107) Carbon Dioxide Level 30 mmol/L (20-31) Anion Gap 8 (5-15) Blood Urea Nitrogen 20 mg/dL (9-23) Creatinine 1.15 mg/dL (0.700-1.30) Glomerular Filtration Rate Calc 87 mL/min (>90) BUN/Creatinine Ratio 17.4 (10.0-20.0) Serum Glucose 186 mg/dL (74-106) Hemoglobin A1c 5.6 % A1C (<5.7) Calcium Level 9.9 mg/dL (8.7-10.4) Magnesium Level 2.2 mg/dL (1.6-2.6) Total Bilirubin 0.9 mg/dL (0.2-1.0) Aspartate Amino Transferase (AST) 24 U/L (13-40) Alanine Aminotransferase (ALT) 25 U/L (7-40) Alkaline Phosphatase 60 U/L (46-116) Total Protein 7.9 g/dL (5.7-8.2) Albumin 5.0 g/dL (3.2-4.8) Vitamin B12 Level 399 pg/mL (211-911) Vitamin D 25-Hydroxy 36.7 ng/mL (30.0-100) Folic Acid 37.73 ng/mL (>5.38) Thyroid Stimulating Hormone (TSH) 1.82 uIU/mL (0.55-4.78) Plasma/Serum Blood Alcohol 3.3 mg/dL (<10) Urine Color Brown (Yellow) Urine Clarity Ex.turbid (Clear) Urine pH 5.5 (5.0-9.0) Urine Specific [place] 1.038 (1.001-1.035) Urine Protein 1+ (Negative) Urine Ketones 1+ (Negative) Urine Blood 3+ /uL (Negative) Urine Nitrite Negative (Negative) Urine Bilirubin Negative (Negative) Urine Urobilinogen Normal mg/dL (Negative) Urine Leukocyte Esterase Negative /uL (Negative) Urine RBC 6490 /hpf (0 - 3) Urine Microscopic WBC 110 /HPF (0-3) Urine Squamous Epithelial Cells None seen /hpf (<5) Urine Bacteria None seen /hpf (None Seen) Urine Mucus Few (None Seen) Urine Glucose Normal mg/dL (Normal) Urine Opiates Screen Neg (NEGATIVE) Urine Fentanyl Screen Neg (NEGATIVE) Urine Barbiturates Screen Neg (NEGATIVE) Urine Phencyclidine Screen Neg (NEGATIVE) Urine Amphetamines Screen Neg (NEGATIVE) Urine Benzodiazepines Screen Neg (NEGATIVE) Urine Cocaine Screen Neg (NEGATIVE) Urine Cannabinoids Screen Pos (NEGATIVE) Other Laboratory Tests 04/30/25 05:35 04/28/25 22:21 Discharge Instruct/Medications No Active Prescriptions or Reported Meds Discharge Statement: "Patient was advised to return to the ER or call 911 if any headaches, dizziness, shortness of breath, chest pain, abdominal pain, bleeding, fevers, or worsening of medical condition. Patient was counseled about treatment plan, medications, possible side effects, patientverbalized understanding. All questions were answered to the best of my ability. This discharge took greater then 30 minutes in planning, reviewing documentation, counseling the patient, and discussing with other team members." ASSESSMENT ASSESSMENT Assessment RODERICK SIEGEL MD Apr 30, 2025 13:33
--- NOTE | 2025-04-30 13:33 | DVHPN2 ---
Objective Vitals Vital Signs Date Time Temp Pulse Resp B/P (MAP) Pulse Ox O2 Delivery O2 Flow Rate FiO2 04/30/25 09:00 98.0 83 18 125/72 (89) 96 98.0 04/30/25 08:00 Room Air* 0 21 Intake/Output Intake and Output 04/30/25 07:00 Intake Total 4203 ml Balance 4203 ml Intake Oral 1853 ml IV Total 2350 ml # Voids 6 Medications Current Medications Medications Dose Ordered Sig/Sheila Route Start Time Stop Time Status Last Admin Dose Admin Acetaminophen/ Hydrocodone Bitart 1 tab Q4HP PRN PO 04/29/25 01:45 Ondansetron HCl 4 mg Q4HP PRN IV 04/29/25 01:45 Acetaminophen 650 mg Q6HP PRN PO 04/29/25 01:45 Tamsulosin HCl 0.4 mg QPM PO 04/29/25 18:00 04/29/25 22:09 0.4 MG Sodium Chloride 1,000 ml @ 150 mls/hr Q6H40M IV 04/29/25 01:45 04/30/25 00:42 150 MLS/HR Ceftriaxone Sodium 50 ml @ 100 mls/hr DAILY@09 IV 04/30/25 09:00 04/30/25 08:38 100 MLS/HR Cyanocobalamin 500 mcg DAILY PO 04/30/25 10:00 04/30/25 08:38 500 MCG Laboratory Results Laboratory Tests 04/28/25 22:21 04/30/25 05:35 Urinalysis Test 04/28/25 22:00 Urine Color Brown (Yellow) H Urine Clarity Ex.turbid (Clear) Urine pH 5.5 (5.0-9.0) Urine Specific [place] 1.038 (1.001-1.035) Urine Protein 1+ (Negative) H Urine Ketones 1+ (Negative) H Urine Blood 3+ /uL (Negative) H Urine Nitrite Negative (Negative) Urine Bilirubin Negative (Negative) Urine Urobilinogen Normal mg/dL (Negative) Urine Leukocyte Esterase Negative /uL (Negative) Urine RBC 6490 /hpf (0 - 3) Urine Microscopic WBC 110 /HPF (0-3) H Urine Squamous Epithelial Cells None seen /hpf (<5) Urine Bacteria None seen /hpf (None Seen) Urine Mucus Few (None Seen) Urine Glucose Normal mg/dL (Normal) Microbiology Microbiology Date/Time Source Procedure Growth Status 04/28/25 22:00 Voided Urine Urine Culture - Preliminary Resulted RODERICK SIEGEL MD Apr 30, 2025 13:33
--- NOTE | 2025-04-30 13:54 | DVH ---
EXAM: XR Abdomen, 1 View CLINICAL INDICATION: NEPHROLITHIASIS TECHNIQUE: Frontal supine view of the abdomen/pelvis. COMPARISON: No relevant prior studies available. FINDINGS: GASTROINTESTINAL TRACT: Unremarkable. No dilation. ORGANS: Suboptimal exam secondary to underpenetration. No gross nephrolithiasis. BONES/JOINTS: Unremarkable. No acute fracture. OTHER FINDINGS: Comparison XY KUB ABDOMEN SINGLE VIEW on DOS: 04/29/25. IMPRESSION: Suboptimal exam secondary to underpenetration. No gross nephrolithiasis. HS:Y
== END 2025-04-30 14:20 | disposition home or self-care (01) | DRG 463 ==
LOC: ER 21:12 → OVERFLOW 04-29 01:33 → WEST WING 04-29 02:19
PROVIDERS: ADMIT Internal Medicine; ATTEND Emergency Medicine
DX: N13.6 Pyonephrosis (principal); R16.0 Hepatomegaly, not elsewhere classified; Z68.42 Body mass index [BMI] 45.0-49.9, adult; E66.9 Obesity, unspecified; F17.210 Nicotine dependence, cigarettes, uncomplicated; Z79.899 Other long term (current) drug therapy; Z88.0 Allergy status to penicillin
CPT/HCPCS: 36415; 74018; 74176; 80053; 80307; 80320; 81001; 82306; 82607; 82746; 83036; 83605; 83735; 84443; 85025; 87086; 96361; 96374; 96375; G0378; J1885; J2405